=== PATIENT | female | born 1970 | race American Indian/Alaskan Native ===

== ENCOUNTER 2021-10-19 22:37 | Emergency (ER) | payer SELFPAY ==
[2021-10-19 22:42] VITALS: BP 146/84
--- NOTE | 2021-10-20 16:06 | Event Note ---
ED Screening Note Date of service: 10/20/21 Time: 16:03 ED Screening Note: Patient is a 51-year-old -[place] female with no past medical history who presents to the ED with complaint of persistent bilateral foot and leg pain with swelling, also complains of lightheadedness due to suspected chronic anemia. Patient states that she has not been diagnosed officially with anemia but suspects that her hemoglobin may be low. Patient states that the last time she had labs drawn was over 1 month ago and that at the time all lab test results were unremarkable. Patient states that [place] is from another [place] and is currently looking for a place to stay. Patient denies fever, chills, cough, traumatic injury, dizziness, syncope, chest pain, shortness of breath, numbness and tingling or weakness of lower extremities bilaterally. This initial assessment/diagnostic orders/clinical plan/treatment(s) is/are subject to change based on patients health status, clinical progression and re- assessment by fellow clinical providers in the ED. Further treatment and workup at subsequent clinical providers discretion. Patient/guardian urged not to elope from the ED as their condition may be serious if not clinically assessed and managed. Initial orders include: CBC, CMP, BNP
[2021-10-20 16:13] LABS: Hematocrit 32.4 % (30.3-42.9); Hemoglobin 9.8 gm/dl (10.1-14.3); Mean Corpuscular HGB Conc 30 % (30-34); Mean Corpuscular Volume 70 fl (79-97); Platelet Count 251 K/mm3 (140-440); Red Blood Count 4.63 M/mm3 (3.65-5.03)
[2021-10-20 17:56] LABS: Eosinophils % (Manual) 0 % (0.0-4.3); Total Cells Counted 100
[2021-10-20 17:59] LABS: Anisocytosis 3+; Hypochromasia 2+; Poikilocytosis Few
[2021-10-20 18:00] LABS: Large Platelets Rare; Platelet Estimate Consistent w Auto; Spherocytes Few
[2021-10-20 19:24] LABS: Alanine Aminotransferase 13 units/L (7-56); Albumin 4.4 g/dL (3.9-5); Blood Urea Nitrogen 12 mg/dL (7-17); Calcium 9.4 mg/dL (8.4-10.2); Hemolysis Index 3
[2021-10-20 19:40] LABS: BUN/Creatinine Ratio 17
--- NOTE | 2021-10-21 09:18 | Emergency Department Report ---
HPI - General Chief Complaint: Extremity Injury, Lower Time Seen by Provider: 10/21/21 09:02 - [facility] HPI: Room 5 The patient is a 51-year-old female present with a chief complaint of lightheadedness. [place] felt as though her heart rate was slow and she began to feel lightheaded. Patient states this lasted approximately 10 to 15 minutes until EMS arrived and then resolved. When checking into the emergency department patient initially stated her chief complaint was bilateral lower extremity edema but she now denies that. Patient is reportedly homeless and has been seen by case management and provided bus cards and information for shelters ED Past Medical Hx - Past Medical History Additional medical history: Anemia - Surgical History Additional Surgical History: - Family History Family history: no significant - Social History Smoking Status: Never Smoker Substance Use Type: None ED Review of Systems ROS: Stated complaint: LOWER EXT PAIN Other details as noted in HPI Constitutional: no symptoms reported Eyes: denies: eye pain ENT: denies: throat pain Respiratory: no symptoms reported Cardiovascular: denies: chest pain, palpitations Endocrine: no symptoms reported Gastrointestinal: denies: abdominal pain Genitourinary: denies: dysuria Musculoskeletal: denies: back pain Neurological: denies: headache Physical Exam - Physical Exam Vital Signs: Vital Signs 10/19/21 22:40 Temperature 97.8 F Pulse Rate 104 H Respiratory 16 Rate Blood Pressure 146/84 [Right] O2 Sat by Pulse 97 Oximetry Physical Exam: GENERAL: The patient is well-developed well-nourished female sitting on chair not appearing to be in acute distress. [] HEENT: Normocephalic. Atraumatic. Extraocular motions are intact. Patient has moist mucous membranes. NECK: Supple. Trachea midline CHEST/LUNGS: Clear to auscultation. There is no respiratory distress noted. HEART/CARDIOVASCULAR: Regular. There is no tachycardia. There is no gallop rub or murmur. ABDOMEN: Abdomen is soft, nontender. Patient has normal bowel sounds. There is no abdominal distention. SKIN: There is no rash. There is no edema. There is no diaphoresis. NEURO: The patient is awake, alert, and oriented. The patient is cooperative. The patient has no focal neurologic deficits. The patient has normal speech. Cranial nerves II through XII grossly intact MUSCULOSKELETAL: There is no evidence of acute injury. ED Course Vital Signs 10/19/21 22:40 Temperature 97.8 F Pulse Rate 104 H Respiratory 16 Rate Blood Pressure 146/84 [Right] O2 Sat by Pulse 97 Oximetry - Reevaluation(s) Reevaluation #1: 10/21/21 09:34 Patient refusing EKG and orthostatics. Will leave AMA ED Medical Decision Making - Lab Data Result diagrams: 10/20/21 16:01 10/20/21 18:37 Laboratory Tests 10/20/21 10/20/21 10/20/21 16:01 18:37 18:37 WBC 6.1 RBC 4.63 Hgb 9.8 L Hct 32.4 MCV 70 L MCH 21 L MCHC 30 RDW 31.0 H Plt Count 251 [place] % (Auto) Motor Analyst Add Manual Diff Complete Total Counted 100 Seg Neuts % (Manual) 72.0 H Band Neutrophils % 0 Lymphocytes % (Manual) 13.0 L Reactive Lymphs % (Man) 0 Monocytes % (Manual) 12.0 H Eosinophils % (Manual) 0 Basophils % (Manual) 3.0 H Metamyelocytes % 0 Myelocytes % 0 Promyelocytes % 0 Blast Cells % 0 Nucleated RBC % Not Reportable Seg Neutrophils # Man 4.4 Band Neutrophils # 0.0 Lymphocytes # (Manual) 0.8 L Abs React Lymphs (Man) 0.0 Monocytes # (Manual) 0.7 Eosinophils # (Manual) 0.0 Basophils # (Manual) 0.2 H Metamyelocytes # 0.0 Myelocytes # 0.0 Promyelocytes # 0.0 Blast Cells # 0.0 WBC Morphology Not Reportable Hypersegmented Neuts Not Reportable Hyposegmented Neuts Not Reportable Hypogranular Neuts Not Reportable Smudge Cells Not Reportable Toxic Granulation Not Reportable Toxic Vacuolation Not Reportable Dohle Bodies Not Reportable Pelger-Huet Anomaly Not Reportable Sherie Rods Not Reportable Platelet Estimate Consistent w auto Clumped Platelets Not Reportable Plt Clumps, EDTA Not Reportable Large Platelets Rare Giant Platelets Not Reportable Platelet Satelliting Not Reportable Plt Morphology Comment Not Reportable RBC Morphology Not Reportable Dimorphic RBCs Not Reportable Polychromasia Not Reportable Hypochromasia 2+ Poikilocytosis Few Anisocytosis 3+ Microcytosis 3+ Macrocytosis Not Reportable Spherocytes Few Pappenheimer Bodies Not Reportable Sickle Cells Not Reportable Target Cells Not Reportable Tear Drop Cells Not Reportable Ovalocytes Not Reportable Helmet Cells Not Reportable [place] Bodies Not Reportable [place] Rings Not Reportable Jayleen Cells Not Reportable Bite Cells Not Reportable Crenated Cell Not Reportable Elliptocytes Rare Acanthocytes (Spur) Not Reportable Rouleaux Not Reportable Hemoglobin C Crystals Not Reportable Schistocytes Not Reportable Malaria parasites Not Reportable Dar Bodies Not Reportable Hem Pathologist Commnt No Sodium 135 L Potassium 4.1 Chloride 97.8 L Carbon Dioxide 25 Anion Gap 16 BUN 12 Creatinine 0.7 Estimated GFR > 60 BUN/Creatinine Ratio 17 Glucose 73 Calcium 9.4 Total Bilirubin 0.90 AST 15 ALT 13 Alkaline Phosphatase 101 NT-Pro-B Natriuret Pep 32.91 Total Protein 7.8 Albumin 4.4 Albumin/Globulin Ratio 1.3 - Differential Diagnosis Symptomatic anemia, dehydration, orthostasis, anxiety Critical care attestation.: If time is entered above; I have spent that time in minutes in the direct care of this critically ill patient, excluding procedure time. ED Disposition Clinical Impression: Lightheadedness Disposition: 07 LEFT AGAINST MEDICAL ADVICE Is pt being admited?: No Does the pt Need Aspirin: No Condition: Undetermined Referrals: PRIMARY CARE, [Primary Care Provider] - 3-5 Days Forms: AMA Form Time of Disposition: 09:35 (Patient refusing further evaluation and leaving AMA)
== END 2021-10-21 09:59 | disposition left against medical advice (07) ==
LOC: ED 22:37
DX: R42 Dizziness and giddiness (principal)
CPT/HCPCS: 36415; 80053; 83880; 85007; 85025; 99283